=== PATIENT | female | born 1945 | race Caucasian/White ===

== ENCOUNTER 2016-07-27 19:55 | Emergency (ER) | payer MEDICARE, OTHER ==
[~2016-07-27] VITALS: Ht 157.5 cm; Wt 75.1 kg
[~2016-07-27 19:55] MED LIST: CODE30TA PO; LISI-360 PO; LORTA5 PO; METH500T3 PO; MEVA40TA PO; PRED20 PO
[2016-07-27 20:16] VITALS: BP 134/77; PULSE 90; RESP 16; TEMP 98.1; O2SAT 97
[2016-07-27] MEDS ORDERED: GABA300C5 PO (20:28)
[2016-07-27] MEDS ORDERED: LISI10TA3 PO (20:28)
[2016-07-27] MEDS ORDERED: METH500T3 PO (20:28)
[2016-07-27] MEDS ORDERED: PRAV40TA2 PO (20:28)
[2016-07-27] MEDS ORDERED: predniSONE 20 MG TAB PO ONE (20:45)
[2016-07-27] MEDS ORDERED: KETOROLAC TROMETHAMINE 60 MG/2 ML (IM) VIAL IM ONE (20:45)
--- NOTE | 2016-07-27 20:47 | PD ---
HPI Chief Complaint: Pain: Acute or Chronic Time Seen by Provider: 20:30 Travel History International Travel<30 days: No Contact w/Intl Traveler<30days: No Traveled to known affect area: No History of Present Illness HPI 70-year-old female coming in with right-sided low back pain, radiating into the buttock and occasionally down to the knee. Patient has history of sciatica in the left in the past. Patient denies weakness, numbness , changes in bowel or bladder. He has no specific injury history. Patient states it's been progressive over the last several days. She called her care physician on Friday requested that she increase her gabapentin. Patient states she has not done that yet, and that her pain is worsened since that time. Patient has no allergies other than simvastatin. PFSH Past Medical History Arthritis: Yes High Cholesterol: Yes Hypertension: Yes ?: Not Menopausal: Yes Past Surgical History Cholecystectomy: Yes Oral Surgery: Yes (DENTAL WORK) Social History Alcohol Use: Yes (OCCAS. [employer]IALLY M[employer] DRINKS OR BEER) Tobacco Use: No (QUIT 40 YEARS AGO) Substance Use: No Allergies-Medications (Allergen,Severity, Reaction): Coded Allergies: Simvastatin (Verified Allergy, Severe, RASH, 07/27/16) Reported Meds & Prescriptions Reported Meds & Active Scripts Active Tramadol (Tramadol HCl) 50 Mg Tab 50 Mg PO Q6H PRN Prednisone 20 Mg Tab 20 Mg PO BID Reported Pravastatin 40 Mg Tab 50 Mg PO DAILY Lisinopril 10 Mg Tab 10 Mg PO DAILY Gabapentin 300 Mg Cap 300 Mg PO BID Methocarbamol 500 Mg Tab 500 Mg PO TID Review of Systems Except as stated in HPI: all other systems reviewed are Neg General / Constitutional: No: Fever Eyes: No: Visual changes HENT: No: Headaches Cardiovascular: No: Chest Pain or Discomfort Respiratory: No: Shortness of Breath Gastrointestinal: No: Abdominal Pain Genitourinary: No: Dysuria Musculoskeletal: Positive: Arthralgias, Pain (see history present illness), No : Myalgias, Limited ROM, Weakness Skin: No Rash Neurologic: No: Weakness Psychiatric: No: Depression Endocrine: No: Polydipsia Hematologic/Lymphatic: No: Easy Bruising Physical Exam Narrative GENERAL: Patient appears in mild distress. SKIN: Warm and dry. Normal color. Normal turgor. No rash. HEAD: Atraumatic. Normocephalic. EYES: Pupils equal and round. No scleral icterus. No injection or drainage. ENT: No nasal bleeding or discharge. Mucous membranes pink and moist. Pharynx is clear. NECK: Trachea midline. No JVD. Neck is supple nontender. CARDIOVASCULAR: Regular rate and rhythm. RESPIRATORY: No accessory muscle use. Clear to auscultation. Breath sounds equal bilaterally. GASTROINTESTINAL: Abdomen soft, non-tender, nondistended. Hepatic and splenic margins not palpable. MUSCULOSKELETAL: Extremities without clubbing, cyanosis, or edema. No obvious deformities. Patient has tenderness along the right lower lumbar soft tissue extending into the sciatic notch. Patient has positive straight leg raise pain on the right 40. Patient has normal dorsiflexion and plantar flexion. Deep tendon reflexes are intact bilaterally. NEUROLOGICAL: Awake and alert. No obvious cranial nerve deficits. Motor grossly within normal limits. Five out of 5 muscle strength in the arms and legs. Normal speech. PSYCHIATRIC: Appropriate mood and affect; insight and judgment normal. Data Data Last Documented VS Vital Signs Date Time Temp Pulse Resp B/P Pulse Ox O2 Delivery O2 Flow Rate FiO2 07/27/16 20:16 98.1 90 16 134/77 97 Orders Prednisone (Deltasone) (07/27/16 20:45) Ketorolac Inj (Toradol Inj) (07/27/16 20:45) MDM Medical Decision Making Medical Screen Exam Complete: Yes Emergency Medical Condition: Yes Differential Diagnosis Sacroiliitis. Acute low back pain. Sciatica. Narrative Course Patient is medically stable at time of exam. Radiographic imaging not felt necessary at this time. Patient is given Toradol 60 mg IM. Patient is given prednisone 60 mg by mouth. Patient will be continued on prednisone 20 mg twice a day 5 days starting tomorrow. Patient is recommended to increase her gabapentin to 300 mg 3 times a day. Patient is given tramadol 50 mg one every 6 hours when necessary pain #20. Patient is to follow with her primary care physician next week to ensure improvement. Patient should return the emergency Department with worsening symptoms as discussed as needed. Diagnosis Primary Impression: Low back pain radiating down leg Referrals: Primary Care Physician Patient Instructions: General Instructions Additional Instructions: Radiographic imaging not felt necessary at this time. Patient is given Toradol 60 mg IM. Patient is given prednisone 60 mg by mouth. Patient will be continued on prednisone 20 mg twice a day 5 days starting tomorrow. Patient is recommended to increase her gabapentin to 300 mg 3 times a day. Patient is given tramadol 50 mg one every 6 hours when necessary pain #20. Patient is to follow with her primary care physician next week to ensure improvement. Patient should return the emergency Department with worsening symptoms as discussed as needed. Scripts Tramadol 50 Mg Tab50 Mg PO Q6H PRN (PAIN) #20 TAB Prov:Rajeev Cervantes MD 07/27/16 Prednisone 20 Mg Tab20 Mg PO BID #10 TAB Prov:Rajeev Cervantes MD 07/27/16 Disposition: 01 DISCHARGE HOME Condition: Stable Juan Scott Jul 27, 2016 20:47
[2016-07-27] MEDS ORDERED: PRED20 PO (20:48)
[2016-07-27] MEDS ORDERED: TRAM50TA PO (20:48)
== END 2016-07-27 21:09 | disposition home or self-care (01) ==
LOC: PHEFT 19:55
DX: M54.40 Lumbago with sciatica, unspecified side (principal)
CPT/HCPCS: 96372; 99283; J1885; J7512